=== PATIENT | male | born 1995 | race Caucasian/White ===

== ENCOUNTER 2024-11-13 11:07 | Outpatient (CLI) | payer BC | END 2024-11-13 11:08 | disposition home or self-care (01) | LOC: SCSMRI 11:07 | PROVIDERS: ATTEND Family Medicine Sports Medicine | DX: M47.26 Other spondylosis with radiculopathy, lumbar region (principal); N28.9 Disorder of kidney and ureter, unspecified | CPT/HCPCS: 72148 ==